=== PATIENT | male | born 1985 | race Caucasian/White ===

== ENCOUNTER 2017-05-06 15:56 | Emergency (ER) | payer SELFPAY ==
--- NOTE | 2017-05-06 16:09 | ER Document Report ---
ED Neck/Back Problem - General Mode of Arrival: Medic Information source: Patient, Emergency Med Personnel TRAVEL OUTSIDE OF THE [place] IN LAST 30 DAYS: No - HPI Patient complains to provider of: Pain Onset: This morning - 4 A.M. Where: Home - VISITING RELATIVES IN [place] LIVES IN [place] Onset: Sudden Timing: Waxing and waning Quality of pain: Sharp, Other - "SPASMS" Recent injury: No Associated symptoms: Numbness/tingling, Lower back pain Exacerbated by: Movement of trunk Relieved by: Remaining still Similar symptoms previously: No Recently seen / treated by doctor: Yes - [facility] IN [place], 2-3 WEEKS AGO - General Chief Complaint: Back Pain Stated Complaint: BACK PAIN Time Seen by Provider: 05/06/17 16:02 - Related Data Allergies/Adverse Reactions: cefaclor [From Ceclor] Allergy (Verified 05/06/17 16:18) Past Medical History - General Information source: Patient - Social History Smoking Status: Unknown if Ever Smoked Frequency of alcohol use: Rare Drug Abuse: None Lives with: Family Family History: Reviewed & Not Pertinent Patient has suicidal ideation: No Patient has homicidal ideation: No - Past Medical History Cardiac Medical History: Reports: Hx Hypertension Pulmonary Medical History: Reports: None EENT Medical History: Reports: None Neurological Medical History: Reports: None Endocrine Medical History: Reports: None Renal/ Medical History: Reports: None Malignancy Medical History: Reports None GI Medical History: Reports: None Musculoskeltal Medical History: Reports None Psychiatric Medical History: Reports: None Traumatic Medical History: Reports: Other - BACK INJURY (SPORS-RELATED) IN REMOTE PAST, FULL RECOVERY Review of Systems - Review of Systems Constitutional: No symptoms reported. denies: Chills, Fever EENT: No symptoms reported Cardiovascular: No symptoms reported Respiratory: No symptoms reported Gastrointestinal: No symptoms reported Genitourinary: No symptoms reported. denies: Incontinence, Retention Musculoskeletal: See HPI Skin: No symptoms reported Neurological/Psychological: Other - BACK PAIN RADIATES TO R. L.E. - Vital signs Vitals: Temp Pulse Resp BP Pulse Ox 98.4 F 87 18 147/73 H 97 05/07/17 01:15 05/07/17 01:15 05/07/17 01:15 05/07/17 01:15 05/07/17 01:15 Course - Transfer of Care Care transferred to following provider: DR. DE LUNA @ 2330 - Re-evaluation Re-evalutation: 05/06/17 23:17 Reevaluation: Patient states pain is somewhat improved, but still has recurrent spasms with movement of the lower back or right leg. He inquires about muscle relaxation medicines, says that methocarbamol has worked well before. Discussed results of imaging studies with patient and parent. Despite the large doses of medication he has received, he does not appear to be the least bit sedated. I am going to order 1 g of methocarbamol intravenously. He was told that the effects of the dexamethasone are going to be very slow onset. ( SHANDA PRUETT) 05/07/17 00:35 I have reevaluated the patient. He is currently receiving the methocarbamol. He seems comfortable at this time. He did say last name is here received Toradol which did help. I have ordered 50 mg of Toradol IV to be given to the patient. (CORRIE DE LUNA) - Vital Signs Vital signs: Temp Pulse Resp BP Pulse Ox 98.1 F 84 20 139/69 H 95 05/07/17 02:46 05/07/17 02:46 05/07/17 02:46 05/07/17 02:46 05/07/17 02:46 Discharge - Discharge Clinical Impression: Back pain Qualifiers: Back pain location: low back pain Chronicity: chronic Back pain laterality: bilateral Sciatica presence: without sciatica Qualified Code(s): M54.5 - Low back pain Condition: Good Disposition: HOME, SELF-CARE Instructions: Oral Narcotic Medication ([facility]) Additional Instructions: Please take the pain medication as prescribed. please follow up with Dr. Enriqueta العراقي for reevaluation and potential racet injecitons being that your MRI shows an Facet arthopathy. I have printed off a copy of your MRI results to take with you to you appointment. Please return to the ER if you have fevers, leg weakness, loss of bowel control, or if you feel unwell. Continue to take Tylenol and Motrin for pain. Prescriptions: Methocarbamol 750 mg PO TID PRN #20 tablet PRN Reason: muscle spasm Morphine Sulfate [Morphine Ir 15 Mg Tablet] 15 mg PO Q4 PRN #20 tablet PRN Reason: take for breakthrough pain Referrals: ENRIQUETA VALDOVINOS MD [ACTIVE STAFF] - Follow up in 3-5 days (call office in the am for close follow up appointment)
[2017-05-06] MEDS ORDERED: ONDANSETRON HCL INJ/PF 4 MG/2 ML SDV IV ONE (16:19)
[2017-05-06] MEDS ORDERED: DIAZEPAM INJ 10 MG/2 ML DISP.SYRIN IV ONE ×2 (16:19→20:47)
[2017-05-06] MEDS ORDERED: HYDROMORPHONE HCL INJ/PF 2 MG/ML AMPULE IV ONE ×3 (16:19→21:42)
[2017-05-06 18:40] LABS: APPEARANCE,URINE SLIGHTLY-CLOUDY; BILIRUBIN,URINE NEGATIVE (NEGATIVE); COLOR,URINE YELLOW; GLUCOSE, URINE NEGATIVE (NEGATIVE); KETONES,URINE NEGATIVE (NEGATIVE); LEUKOCYTE ESTERASE,URINE NEGATIVE (NEGATIVE); NITRITE,URINE NEGATIVE (NEGATIVE); PROTEIN,URINE NEGATIVE (NEGATIVE); URINE SPECIFIC GRAVITY 1.014; UROBILINOGEN,URINE NEGATIVE mg/dL (<2.0)
[2017-05-06] MEDS ORDERED: DEXAMETHASONE SOD PHOS INJ 10 MG/1 ML VIAL IV ONE (19:30)
--- NOTE | 2017-05-06 19:49 | RADIOLOGY REPORT (SQ) ---
EXAM DESCRIPTION: MRI LUMBAR SPINE WITHOUT COMPLETED DATE/TIME: 05/06/2017 7:26 pm REASON FOR STUDY: SEVERE NON-TRAUMATIC PAIN T-11 THRU L-2 COMPARISON: None. TECHNIQUE: Sagittal and Axial imaging includes T1, T2, STIR and gradient echo sequences. Coronal T2/ HASTE imaging. LIMITATIONS: None. FINDINGS: VISUALIZED UPPER ABDOMEN: Limited evaluation. No acute or suspicious findings suggested. SEGMENTATION: No transitional anatomy. The lowest well-developed disc space is labeled L5-S1. ALIGNMENT: Anatomic. VERTEBRAE: Intact. BONE MARROW: Moderate inflammatory - hypertrophic degenerative changes at the L3-4 level right latera l facet. Otherwise Normal.. DISC SIGNAL: 4 mm central disc protrusion at the L3-4 level. Otherwise No significant abnormal signa l or loss of height. POSTERIOR ELEMENTS: Moderate inflammatory - hypertrophic degenerative changes at the L3-4 level righ t lateral facet. No pars defect evident. HARDWARE: None in the spine. CORD AND CONUS: Normal in size and signal intensity. Conus at the appropriate level. SOFT TISSUES: No aortic aneurysm seen. No bulky retroperitoneal adenopathy or mass. No paraspinal mas s or fluid. L1-L2: No significant spinal stenosis or exit foraminal stenosis. L2-L3: No significant spinal stenosis or exit foraminal stenosis. L3-L4: 4 mm central disc protrusion at the L3-4 level with effacement of the anterior extradural fat. No significant spinal stenosis or exit foraminal stenosis. L4-L5: No significant spinal stenosis or exit foraminal stenosis. L5-S1: No significant spinal stenosis or exit foraminal stenosis. LOWER THORACIC: Incompletely imaged. No stenosis seen. SACRUM: Visualized upper sacrum intact. OTHER: No other significant findings. IMPRESSION: 4 mm central disc protrusion at the L3-4 level with effacement of the anterior extradura l fat. No significant spinal stenosis or exit foraminal stenosis. Moderate inflammatory - hypertrophic degenerative changes at the L3-4 level right lateral facet. TECHNICAL DOCUMENTATION: JOB ID: [id number] [place]-72 2010 [employer]- All Rights Reserved
[2017-05-06] MEDS ORDERED: DIAZEPAM 5 MG TABLET PO ONE (21:42)
[2017-05-06] MEDS ORDERED: METHOCARBAMOL INJ/PF 1000 MG/10 ML SDV IV ONE (23:15)
[2017-05-06] MEDS ORDERED: LIDOCAINE 5% (700 MG) TRANSDERMAL ADH..PATCH TP ONE (23:51)
[2017-05-07] MEDS ORDERED: KETOROLAC TROMETHAMINE INJ/PF 30 MG/1 ML SDV IV ONE ×2 (00:34)
[2017-05-07] MEDS ORDERED: HYDROCODONE/ACETAMINOPHEN 5-325 MG (6 TAB/ER DISP) PO PRN (01:38)
[2017-05-07 02:47] LABS: URINE AMPHETAMINES SCREEN NEGATIVE; URINE BARBITURATES SCREEN NEGATIVE; URINE BENZODIAZEPINES SCREEN NEGATIVE; URINE COCAINE SCREEN NEGATIVE; URINE MARIJUANA (THC) SCREEN NEGATIVE; URINE PHENCYCLIDINE SCREEN NEGATIVE
[2017-05-07 02:56] VITALS: BP 139/69
[2017-05-07 04:05] LABS: URINE METHADONE SCREEN NEGATIVE
== END 2017-05-07 03:10 | disposition home or self-care (01) ==
LOC: ER 15:56
DX: M54.5 Low back pain (principal)
CPT/HCPCS: 96376; 99284; 96375; 96365; 96367; 81001; 80307; 72148; J3360; J2800; J1885; J1170; J2405; J1100